=== PATIENT | female | born 1975 | race Caucasian/White ===

== ENCOUNTER → 2020-10-14 | Outpatient (CLI) | payer BC, OTHER ==
[~2020-10-14] MED LIST: NORCO 5-325 TA1 EACH PO; SPRINTEC 28 DA1 EACH PO; TOPAMAX200 MG PO; ZOMIG5 MG PO
== END ==
LOC: RAD 17:11
DX: M25.512 Pain in left shoulder (principal)
CPT/HCPCS: 73030

== ENCOUNTER → 2020-12-14 | Outpatient (CLI) | payer BC, OTHER | LOC: MRI 12-07 13:00 | DX: S43.432A Superior glenoid labrum lesion of left shoulder, initial encounter (principal) | CPT/HCPCS: 73221 ==

== ENCOUNTER → 2021-04-09 | Outpatient (CLI) | payer BC ==
[2021-04-09 09:22] LABS: BUN/CREATININE RATIO 18 (0-10); GAMMA GLUTAMYL TRANSPEPTIDASE 48 U/L (7-64)
== END ==
LOC: LAB 08:28
PROVIDERS: Internal Medicine
DX: R93.2 Abnormal findings on diagnostic imaging of liver and biliary tract (principal)
CPT/HCPCS: 80053; 82977

== ENCOUNTER → 2021-07-26 | Outpatient (CLI) | payer BC ==
[2021-07-26 11:43] LABS: HEMOGLOBIN 15.2 gm/dl (12.3-15.3); RED BLOOD COUNT 4.69 M/UL (4.00-5.10); WHITE BLOOD COUNT 8.3 K/UL (4.5-11.0)
[2021-07-26 12:05] LABS: BUN/CREATININE RATIO 20 (0-10)
[2021-07-27 08:10] LABS: PREALBUMIN 23 mg/dL (12-34)
== END ==
LOC: LAB 11:18
PROVIDERS: Internal Medicine
DX: K74.3 Primary biliary cirrhosis (principal); L65.9 Nonscarring hair loss, unspecified; E55.9 Vitamin D deficiency, unspecified; R63.4 Abnormal weight loss; Z79.899 Other long term (current) drug therapy
CPT/HCPCS: 36415; 80053; 82607; 82746; 84134; 84439; 84443; 85025; 86038

== ENCOUNTER → 2021-10-21 | Outpatient (CLI) | payer BC ==
[2021-10-21 17:15] LABS: BUN/CREATININE RATIO 24 (0-10); GAMMA GLUTAMYL TRANSPEPTIDASE 43 U/L (7-64)
== END ==
LOC: LAB 15:39
PROVIDERS: Internal Medicine
DX: K76.9 Liver disease, unspecified (principal); R74.8 Abnormal levels of other serum enzymes
CPT/HCPCS: 36415; 80053; 82977; 84446; 84590

== ENCOUNTER 2022-03-26 11:15 | Emergency (ER) | payer BC | END 2022-03-26 13:20 | disposition home or self-care (01) | LOC: ER1 11:15 | DX: M25.512 Pain in left shoulder (principal) | CPT/HCPCS: 73030; 99283 ==

== ENCOUNTER → 2022-04-06 | Outpatient (CLI) | payer BC ==
[2022-04-06 10:52] LABS: HEMOGLOBIN 13.2 gm/dl (12.3-15.3); RED BLOOD COUNT 4.25 M/UL (4.00-5.10); WHITE BLOOD COUNT 6.9 K/UL (4.5-11.0)
== END ==
LOC: LAB 10:32
PROVIDERS: Internal Medicine
DX: R94.5 Abnormal results of liver function studies (principal); K83.1 Obstruction of bile duct; R16.0 Hepatomegaly, not elsewhere classified; R93.2 Abnormal findings on diagnostic imaging of liver and biliary tract
CPT/HCPCS: 36415; 85027; 85610

== ENCOUNTER → 2022-06-06 | Outpatient (CLI) | payer BC ==
[2022-06-06 09:18] LABS: BUN/CREATININE RATIO 25 (0-10)
== END ==
LOC: LAB 08:25
PROVIDERS: Internal Medicine
DX: R74.8 Abnormal levels of other serum enzymes (principal)
CPT/HCPCS: 80053; 82977

== ENCOUNTER → 2022-06-11 | Outpatient (CLI) | payer BC | LOC: RAD 16:53 | DX: R05.9 Cough, unspecified (principal); J42 Unspecified chronic bronchitis | CPT/HCPCS: 71046 ==